=== PATIENT | female | born 1935 | race Caucasian/White ===

== ENCOUNTER 2022-10-11 10:13 | Emergency (ER) | payer MEDICARE ==
[2022-10-11] MEDS ORDERED: HYDROcodone/Acetaminophen 10/325 mg Tablet ONE (11:43)
== END 2022-10-11 11:47 | disposition home or self-care (01) ==
LOC: CSHERS 10:13
DX: S30.0XXA Contusion of lower back and pelvis, initial encounter (principal); I11.0 Hypertensive heart disease with heart failure; I50.9 Heart failure, unspecified; E11.9 Type 2 diabetes mellitus without complications; I25.10 Atherosclerotic heart disease of native coronary artery without angina pectoris; Z79.899 Other long term (current) drug therapy; Z79.84 Long term (current) use of oral hypoglycemic drugs; Z79.82 Long term (current) use of aspirin; W19.XXXA Unspecified fall, initial encounter
CPT/HCPCS: 70450; 72100; 72125

== ENCOUNTER 2022-12-21 14:13 | Outpatient (CLI) | payer MEDICARE | END 2022-12-21 14:14 | disposition home or self-care (01) | LOC: CSHRAD 14:13 | PROVIDERS: ATTEND Neurological Surgery | DX: S32.000A Wedge compression fracture of unspecified lumbar vertebra, initial encounter for closed fracture (principal); S32.020D Wedge compression fracture of second lumbar vertebra, subsequent encounter for fracture with routine healing; S32.010D Wedge compression fracture of first lumbar vertebra, subsequent encounter for fracture with routine healing; Z98.890 Other specified postprocedural states; M47.816 Spondylosis without myelopathy or radiculopathy, lumbar region; M41.86 Other forms of scoliosis, lumbar region | CPT/HCPCS: 72100 ==